=== PATIENT | female | born 1990 | race African-American/Black ===

== ENCOUNTER 2016-06-15 11:30 | Emergency (ER) | payer OTHER ==
[2016-06-15] MEDS ORDERED: LOPERAMIDE 2 MG CAPSULE PO STA (12:57)
[2016-06-15] MEDS ORDERED: ONDANSETRON ODT 4 MG TABLET TL STA (12:57)
[2016-06-15] MEDS ORDERED: ONDANSETRON ODT 4 MG TABLET ONE (12:59)
[2016-06-15] MEDS ORDERED: LOPERAMIDE 2 MG CAPSULE PO ONE (13:00)
== END 2016-06-15 13:07 | disposition home or self-care (01) ==
DX: K52.9 Noninfective gastroenteritis and colitis, unspecified (principal)
CPT/HCPCS: 99283; A9270; Q0162